=== PATIENT | male | born 1940 | race Caucasian/White ===

== ENCOUNTER 2020-12-04 08:30 | Inpatient (IN) | payer MEDICARE ==
[2020-12-04] MEDS ORDERED: SODIUM CHLORIDE 0.9% 1,000 ML IV STA ×2 (08:51→12:00)
--- NOTE | 2020-12-04 08:54 | ED ---
General Adult HPI - General Chief complaint: Fall Stated complaint: fall Time Seen by Provider: 12/04/20 08:45 Source: patient, RN notes reviewed, old records reviewed Mode of arrival: EMS Limitations: no limitations - History of Present Illness Initial comments: This is an 80-year-old male who states he was trying to get out of bed this morning he slipped and fell striking his head and face on the floor. Patient states she's been living at 45 hours. Patient states his refused to help him up. Patient states she's also noted a lot of gas in his abdomen and some little more distended than normal. Patient admits to being a heavy drinker trevor blackmon. Patient's complaint currently is slight facial pain under the right eye and a lot of gas in his abdomen. Patient denies any chest pain difficulty breathing shortness of breath per patient denies being lightheaded or dizzy. Patient denies headache. Patient denies any numbness or weakness. Patient denies neck pain. Patient denies any abdominal pain he does complain of distention. Patient denies any extremity pain. - Related Data Home Medications Medication Instructions Recorded Confirmed Allopurinol [Zyloprim] 100 mg PO DAILY 12/04/20 12/04/20 Aspirin EC [Ecotrin Low Dose] 162 mg PO ONCE PRN 12/04/20 12/04/20 Levothyroxine Sodium [Synthroid] 100 mcg PO DAILY 12/04/20 12/04/20 lisinopriL [Zestril] 10 mg PO DAILY 12/04/20 12/04/20 Allergies Allergy/AdvReac Type Severity Reaction Status Date / Time No Known Allergies Allergy Verified 12/04/20 10:58 Review of Systems ROS Statement: Those systems with pertinent positive or pertinent negative responses have been documented in the HPI. ROS Other: All systems not noted in ROS Statement are negative. Past Medical History Past Medical History: Unable to Obtain History of Any Multi-Drug Resistant Organisms: None Reported Past Surgical History: Unable to Obtain Past Psychological History: No Psychological Hx Reported Smoking Status: Current every day smoker Past Alcohol Use History: Abuse, Daily, Heavy Past Drug Use History: None Reported General Exam - General Exam Comments Initial Comments: GENERAL: Patient is well-developed and well-nourished. Patient is nontoxic and well- hydrated and is in mild distress. ENT: Neck is soft and supple. No significant lymphadenopathy is noted. Oropharynx is clear. Moist mucous membranes. Neck has full range of motion without eliciting any pain. EYES: The sclera were anicteric and conjunctiva were pink and moist. Extraocular movements were intact and pupils were equal round and reactive to light. Eyelids were unremarkable. PULMONARY: Unlabored respirations. Good breath sounds bilaterally. No audible rales rhonchi or wheezing was noted. CARDIOVASCULAR: There is a regular rate and rhythm without any murmurs gallops or rubs. ABDOMEN: Abdomen is distended with slight diffuse pain. There is no point tenderness. Patient is complaining this time that he has had a bowel movement. SKIN: Skin is clear with no lesions or rashes and otherwise unremarkable. NEUROLOGIC: Patient is alert and oriented x3. Cranial nerves II through XII are grossly intact. Motor and sensory are also intact. Normal speech, volume and content. Symmetrical smile. MUSCULOSKELETAL: Normal extremities with adequate strength and full range of motion. Patient has some tenderness under the right eye with others. He said subtle superficial abrasion LYMPHATICS: No significant lymphadenopathy is noted PSYCHIATRIC: Normal psychiatric evaluation. Limitations: no limitations Course Vital Signs 12/04/20 12/04/20 12/04/20 08:43 10:03 11:38 Temperature 98 F Pulse Rate 115 H 116 H 124 H Respiratory 24 18 Rate Blood Pressure 136/123 91/60 99/67 O2 Sat by Pulse 93 L 97 92 L Oximetry 12/04/20 12:01 Temperature Pulse Rate 117 H Respiratory 18 Rate Blood Pressure 88/60 O2 Sat by Pulse 94 L Oximetry Medical Decision Making - Medical Decision Making CT of the brain and C-spine are negative. CT of the facial bones are negative. Patient had a CT of the abdomen it was indicative of a aortic aneurysm with ru pture and hemorrhage around the aorta measuring 17 x 15 cm I spoke with Dr. Harris and he was going to take the patient for Orthopedic Tech I called in the Orthopedic Tech and or is going to be on standby. I had CAT scan burn a disc as well. - Lab Data Result diagrams: 12/04/20 09:37 12/04/20 09:37 Lab Results 12/04/20 12/04/20 12/04/20 Range/Units 09:37 09:37 09:37 WBC 25.4 H (3.8-10.6) k/uL RBC 3.84 L (4.30-5.90) m/uL Hgb 13.3 (13.0-17.5) gm/dL Hct 40.2 (39.0-53.0) % MCV 104.7 H (80.0-100.0) fL MCH 34.6 (25.0-35.0) pg MCHC 33.1 (31.0-37.0) g/dL RDW 12.4 (11.5-15.5) % Plt Count 171 (150-450) k/uL MPV 8.6 Neutrophils % 85 % Lymphocytes % 8 % Monocytes % 6 % Eosinophils % 0 % Basophils % 0 % Neutrophils # 21.5 H (1.3-7.7) k/uL Lymphocytes # 2.1 (1.0-4.8) k/uL Monocytes # 1.4 H (0-1.0) k/uL Eosinophils # 0.1 (0-0.7) k/uL Basophils # 0.1 (0-0.2) k/uL Macrocytosis Slight PT 10.7 (9.0-12.0) sec INR 1.0 (<1.2) APTT 21.2 L (22.0-30.0) sec Sodium 140 (137-145) mmol/L Potassium 3.8 (3.5-5.1) mmol/L Chloride 107 (98-107) mmol/L Carbon Dioxide 11 L (22-30) mmol/L Anion Gap 22 mmol/L BUN 16 (9-20) mg/dL Creatinine 1.52 H (0.66-1.25) mg/dL Est GFR (CKD-EPI)AfAm 50 (>60 ml/min/1.73 sqM) Est GFR (CKD-EPI)NonAf 43 (>60 ml/min/1.73 sqM) Glucose 196 H (74-99) mg/dL Plasma Lactic Acid Gabino (0.7-2.0) mmol/L Calcium 9.8 (8.4-10.2) mg/dL Magnesium 2.7 H (1.6-2.3) mg/dL Total Bilirubin 0.7 (0.2-1.3) mg/dL AST 40 (17-59) U/L ALT 26 (4-49) U/L Alkaline Phosphatase 68 (38-126) U/L Total Protein 6.3 (6.3-8.2) g/dL Albumin 3.7 (3.5-5.0) g/dL Amylase 76 (30-110) U/L Lipase 152 (23-300) U/L Serum Alcohol <10 mg/dL Blood Type Recheck Bld Type Recheck Status Spec Expiration Date 12/04/20 12/04/20 Range/Units 09:37 11:33 WBC (3.8-10.6) k/uL RBC (4.30-5.90) m/uL Hgb (13.0-17.5) gm/dL Hct (39.0-53.0) % MCV (80.0-100.0) fL MCH (25.0-35.0) pg MCHC (31.0-37.0) g/dL RDW (11.5-15.5) % Plt Count (150-450) k/uL MPV Neutrophils % % Lymphocytes % % Monocytes % % Eosinophils % % Basophils % % Neutrophils # (1.3-7.7) k/uL Lymphocytes # (1.0-4.8) k/uL Monocytes # (0-1.0) k/uL Eosinophils # (0-0.7) k/uL Basophils # (0-0.2) k/uL Macrocytosis PT (9.0-12.0) sec INR (<1.2) APTT (22.0-30.0) sec Sodium (137-145) mmol/L Potassium (3.5-5.1) mmol/L Chloride (98-107) mmol/L Carbon Dioxide (22-30) mmol/L Anion Gap mmol/L BUN (9-20) mg/dL Creatinine (0.66-1.25) mg/dL Est GFR (CKD-EPI)AfAm (>60 ml/min/1.73 sqM) Est GFR (CKD-EPI)NonAf (>60 ml/min/1.73 sqM) Glucose (74-99) mg/dL Plasma Lactic Acid Gabino 12.9 H* (0.7-2.0) mmol/L Calcium (8.4-10.2) mg/dL Magnesium (1.6-2.3) mg/dL Total Bilirubin (0.2-1.3) mg/dL AST (17-59) U/L ALT (4-49) U/L Alkaline Phosphatase (38-126) U/L Total Protein (6.3-8.2) g/dL Albumin (3.5-5.0) g/dL Amylase (30-110) U/L Lipase (23-300) U/L Serum Alcohol mg/dL Blood Type Recheck No Previous Record Bld Type Recheck Status CABO Indicated Spec Expiration Date 12/07/20202332 Disposition Clinical Impression: Ruptured abdominal aortic aneurysm Disposition: ADMITTED IP TO THIS HOSP Referrals: Zurdo Seymour DO [Primary Care Provider] - 1-2 days Time of Disposition: 12:11
[2020-12-04] MEDS ORDERED: SODIUM CHLORIDE 0.9% 1,000 ML IV ONE ×2 (09:26→17:30)
[2020-12-04 09:51] LABS: Basophils # (A) 0.1 k/uL (0-0.2); Basophils % (A) 0 %; Eosinophils # (A) 0.1 k/uL (0-0.7); Eosinophils % (A) 0 %; HCT 40.2 % (39.0-53.0); HGB 13.3 gm/dL (13.0-17.5); Lymphocytes # (A) 2.1 k/uL (1.0-4.8); Lymphocytes % (A) 8 %; MCH 34.6 pg (25.0-35.0); MCHC 33.1 g/dL (31.0-37.0); MCV 104.7 fL (80.0-100.0); Macrocytosis Slight; Mean Platelet Volume 8.6; Monocytes # (A) 1.4 k/uL (0-1.0); Monocytes % (A) 6 %; Neutrophils # (A) 21.5 k/uL (1.3-7.7); Neutrophils % (A) 85 %; Platelet Count 171 k/uL (150-450); RBC 3.84 m/uL (4.30-5.90); RDW 12.4 % (11.5-15.5); WBC 25.4 k/uL (3.8-10.6)
[2020-12-04 10:06] LABS: Prothrombin Time 10.7 sec (9.0-12.0)
[2020-12-04 10:10] LABS: Partial Thromboplastin Time 21.2 sec (22.0-30.0)
[2020-12-04 10:11] LABS: AST 40 U/L (17-59); African American GFR (CKD) 50 (>60 ml/min/1.73 sqM); Albumin 3.7 g/dL (3.5-5.0); Alcohol <10 mg/dL; Alkaline Phosphatase 68 U/L (38-126); Amylase 76 U/L (30-110); Anion Gap 22 mmol/L; Blood Urea Nitrogen 16 mg/dL (9-20); Calcium 9.8 mg/dL (8.4-10.2); Carbon Dioxide 11 mmol/L (22-30); Chloride 107 mmol/L (98-107); Glucose 196 mg/dL (74-99); Lipase 152 U/L (23-300); Magnesium 2.7 mg/dL (1.6-2.3); Non-African American GFR(CKD) 43 (>60 ml/min/1.73 sqM); Potassium 3.8 mmol/L (3.5-5.1); Sodium 140 mmol/L (137-145); Total Bilirubin 0.7 mg/dL (0.2-1.3); Total Protein 6.3 g/dL (6.3-8.2)
[2020-12-04 10:17] LABS: ALT 26 U/L (4-49)
--- NOTE | 2020-12-04 10:21 | CT ---
EXAMINATION TYPE: CT brain cspine wo con DATE OF EXAM: 12/04/2020 COMPARISON: None HISTORY: Fall from bed this am CT DLP: 1270.7 mGycm Automated exposure control for dose reduction was used. TECHNIQUE: CT scan of the head and cervical spine are performed without contrast. FINDINGS: There is no acute intracranial hemorrhage, mass effect, or midline shift identified. The ventricles, basal cisterns and sulci over the convexities are markedly enlarged consistent with marke d generalized atrophy.. Incidental note is scattered punctate calcifications in the left parietal co rtex which are nonspecific. The globes are intact and the visualized sinuses are clear. Cervical spine is visualized in its entirety from C1 through upper thoracic levels and demonstrates s atisfactory alignment without evidence of acute fracture or dislocation. There are marked degenerati ve changes in the mid lower lumbar spine with marked degenerative disc disease and facet arthropathy and to a lesser extent arthropathy of the uncovertebral joints. Prevertebral soft tissue appears with in normal limits. The C1-C2 articulation is unremarkable. IMPRESSION: 1. There is no acute fracture or dislocation evident in the cervical spine. 2. No acute intracranial hemorrhage, mass effect, or midline shift is seen.
--- NOTE | 2020-12-04 10:23 | CT ---
EXAMINATION TYPE: CT facial bones wo con DATE OF EXAM: 12/04/2020 COMPARISON: HISTORY: Fall from bed this am CT DLP: 1270.7 mGycm Automated exposure control for dose reduction was used. TECHNIQUE: CT scan of the sinuses is performed without contrast, axial images are obtained, coronal r eformatted images are also reviewed. FINDINGS: The paranasal sinuses including the frontal, ethmoid, sphenoid, and maxillary sinuses bila terally are well-aerated without abnormal opacification. The ostiomeatal complex is patent bilateral ly on the coronal images. The osseous structures are intact and there is no evidence of fracture. Visualized portion of mastoid air cells show no abnormal opacification. The globes are intact bilate rally. IMPRESSION: The sinuses are clear and the ostiomeatal complex is patent bilaterally. There is no randee dence of facial trauma.
--- NOTE | 2020-12-04 11:49 | CT ---
EXAMINATION TYPE: CT angio abdomen pelvis DATE OF EXAM: 12/04/2020 COMPARISON: None HISTORY: abd distention, decreased BP CT DLP: 2299.4 mGycm CONTRAST: CTA abdominal aorta with 3-D reconstruction is performed without Oral Contrast and without and with IV Contrast, patient injected with 100 mL of Isovue 370. Contrast CTA of the abdominal aorta was performed from the lung bases through the base of the pelvis . 3-D reconstruction imaging obtained at a separate workstation. CONTRAST CT ABDOMEN AND PELVIS ABDOMINAL AORTA: There is ruptured abdominal aortic aneurysm noted with periaortic hemorrhage seen. A neurysm measures approximately 11.3 cm AP dimension. There is ill-definition of the anterior wall wit h periaortic hemorrhage measuring approximately 16.8 cm in transverse dimension by 15 cm in AP dimens ion. On precontrast imaging there is a hyperattenuating crescent sign indicating an area of increased attenuation within the aortic aneurysm mural thrombus. LIVER/GB- No significant abnormality is seen. PANCREAS- No significant abnormality is seen. SPLEEN- No significant abnormality is seen. ADRENALS- No significant abnormality is seen. KIDNEYS/BLADDER- No significant abnormality is seen. BOWEL- No Significant abnormality . Incidental hiatal hernia. GENITAL ORGANS: No gross abnormality seen. LYMPH NODES- No greater than 1cm abdominal or pelvic lymph nodes areappreciated. OSSEOUS STRUCTURES- No significant abnormality is seen. OTHER- No significant abnormality is seen. IMPRESSION- 1. Ruptured abdominal aortic aneurysm. Periaortic hemorrhage noted as discussed above.
[2020-12-04 12:24] LABS: Basophils % (A) 0 %; Eosinophils % (A) 0 %; HCT 34.8 % (39.0-53.0); HGB 11.4 gm/dL (13.0-17.5); Lymphocytes % (A) 5 %; MCH 33.9 pg (25.0-35.0); MCHC 32.7 g/dL (31.0-37.0); MCV 103.6 fL (80.0-100.0); Macrocytosis Slight; Monocytes # (A) 1.3 k/uL (0-1.0); Monocytes % (A) 6 %; Neutrophils # (A) 17.2 k/uL (1.3-7.7); Neutrophils % (A) 87 %; Platelet Count 174 k/uL (150-450); RBC 3.35 m/uL (4.30-5.90); RDW 13.3 % (11.5-15.5); WBC 19.7 k/uL (3.8-10.6)
[2020-12-04] MEDS ORDERED: HEPARIN SODIUM,PORCINE 5,000 UNIT/ML 1 ML VIAL ONE (13:30)
[2020-12-04] MEDS ORDERED: fentaNYL (PF) 50 MCG/ML 2 ML AMP ONE (13:30)
[2020-12-04] MEDS ORDERED: SODIUM CHLORIDE 0.9% 100 ML BAG ONE (13:30)
[2020-12-04] MEDS ORDERED: SUCCINYLCHOLINE CHLORIDE 100 MG/5 ML SYR IV ONE (13:30)
[2020-12-04] MEDS ORDERED: PROPOFOL 10 MG/ML 20 ML VIAL IV ONE (13:30)
[2020-12-04] MEDS ORDERED: PHENYLEPHRINE-0.9% NACL SYG 1,000 MCG/10 ML SYRINGE ONE (13:30)
[2020-12-04] MEDS ORDERED: ceFAZolin 1,000 MG VIAL ONE (13:30)
--- NOTE | 2020-12-04 13:37 | P.PN ---
Progress Note - Text Progress Note Date: 12/04/20 This is an 80-year-old male who states he was trying to get out of bed this morning he slipped and fell striking his head and face on the floor. Patient states he's been lying on the floor for 4-5 hours. Patient states his refused to help him up. His abdomen became more distended and was complaining of gas pains and was brought to the hospital at that time. He arrived to the hospital this morning around 9 am and was complaining of facial pain and a lot of gas in his abdomen. Patient admits to being a heavy drinker daily. He underwent trauma workup with xrays which were negative but then patient became hypotensive and complaining of more distension and therefore a CTA of the abd omen was ordered which demonstrated a 11cm ruptured AAA and the vascular surgery was called at 11:47. Patient has been maintained at SBP of 100 or so for the last couple of hours and has received 3 liters of IVF. Patient was then seen at 12:20 by myself and he was stable with permissive hypotension. CTA was reviewed and the aorta is large with an acute angle at the renals with a short neck kee uring 7-10mm. All options were discussed with the patient including open repair vs. endovascular repair. We will attempt endovascular repair but if unable to seal will need to open which was discussed with family and patient along with all risks and complications including renal failure and . Will take to the sanitation laborer emergently once all team arrives. 2 units PRBC are on hold, anesthesia contacted as well as the operating room which is on standby for open repair. Critical care time 45 minutes.
[2020-12-04] MEDS ORDERED: LIDOCAINE 1% INJ 10MG/ML (20 ML MDV) SQ ONE (13:50)
[2020-12-04] MEDS ORDERED: IV FLUID CONTINUATION 1,000 ML IV ONE ×3 (14:21→17:20)
[2020-12-04] MEDS: SODIUM BICARB 8.4% 50 ML SYR (1 MEQ/ML) ONE ×2 (17:45→18:50)
[2020-12-04] MEDS ORDERED: SODIUM BICARB 8.4% 50 ML SYR (1 MEQ/ML) IV STA ×3 (17:52→18:29)
[2020-12-04] MEDS ORDERED: IOPAMIDOL-250 100ML BTL INTRAARTER ONE ×2 (17:52)
[2020-12-04] MEDS ORDERED: SODIUM CHLORIDE 0.9% 50 ML with VASOPRESSIN 20 UNIT IVPB SCH ×2 (18:00)
[2020-12-04] MEDS ORDERED: NOREPINEPHRINE 32 MG in SODIUM CHLORIDE 0.9% 218 ML IV SCH (18:00)
[2020-12-04] MEDS ORDERED: propofoL 100 ML IV ONE (18:04)
[2020-12-04 18:25] LABS: ABG Base Excess -24.2 mmol/L; ABG Oxygen Saturation 98.2 % (94-97); ABG PCO2 50 mmHg (35-45); ABG PO2 201 mmHg (83-108); ABG TCO2 11 mmol/L (19-24); Allen Test Performed? Yes
[2020-12-04 18:26] LABS: Glucose,Whole Blood 187 mg/dL (75-99)
[2020-12-04] MEDS ORDERED: SODIUM BICARB 8.4% 50 ML SYR (1 MEQ/ML) ONE ×2 (18:26→18:27)
[2020-12-04 18:28] LABS: ABG HCO3 9 mmol/L (21-25); ABG PH 6.88 (7.35-7.45)
[2020-12-04] MEDS ORDERED: DEXTROSE 5% IN WATER 1,000 ML with SODIUM BICARB (1 MEQ/ML) 150 ML IV SCH (18:30)
--- NOTE | 2020-12-04 18:32 | XR ---
EXAMINATION TYPE: XR chest 1V portable DATE OF EXAM: 12/04/2020 COMPARISON: NONE HISTORY: Endotracheal tube placement TECHNIQUE: Single frontal view of the chest is obtained. FINDINGS: Endotracheal tube present with tip lying approximately 2.5 cm above the frannie. Right-side d central venous catheter present with tip at the cavoatrial junction. Cardiomediastinal silhouette a ppears unremarkable. Low lung volumes with bibasilar atelectasis. No definite pleural effusion or pne umothorax. Visualized osseous structures appear intact. IMPRESSION: 1. Satisfactory placement of endotracheal tube. 2. Lung volumes with bibasilar atelectasis. 3. Right-sided central venous catheter with tip cavoatrial junction.
[2020-12-04] MEDS ORDERED: PHENYLEPHRINE 40 MG in SODIUM CHLORIDE 0.9% 250 ML IV SCH (18:45)
[2020-12-04 18:47] VITALS: RESP 35; TEMP 93
[2020-12-04 18:53] LABS: HCT 23.4 % (39.0-53.0); Hypochromasia Marked; MCH 33.9 pg (25.0-35.0); MCHC 32.2 g/dL (31.0-37.0); MCV 105.1 fL (80.0-100.0); Macrocytosis Moderate; Mean Platelet Volume 9.3; RBC 2.22 m/uL (4.30-5.90); WBC 10.9 k/uL (3.8-10.6)
[2020-12-04 18:54] LABS: HGB 7.5 gm/dL (13.0-17.5)
[2020-12-04 19:04] VITALS: BP 88/46; PULSE 110
--- NOTE | 2020-12-04 19:08 | P.EN ---
CODE BLUE Indication: PEA arrest Arrived on Scene to find: CODE BLUE being run by anesthesia. Patient did have return of pulses of significant hypotension and systemic Inside Sales Trainer. He was stabilized and brought to the ICU. On arrival to the ICU Brinda Tabor noted to be hypotensive with a blood pressure of 46/23. Dr. Harris was at bedside side and have updated the family. Initial Rhythm: PEA arrest Code Course: Patient arrived to ICU. Hypotensive and decrease responsiveness. Levophed was increased. 2 Amps of bicarb was given. EKG was obtained which showed possible sinus tachycardia versus atrial fibrillation. Chest x-ray was obtained. vasopressin was ordered. ABG in 25 minutes. Increased rate to 20. Discussed with Dr. Fernandez rate increased to 30. Additional 1 unit pRBC ordered, complete 1000ml bolus Stat CBC, CMP, PT/inr, PTT, lactic acid, troponin Total Down Time: 5 minutes Vital signs reviewed General: ill appearing, maximal distress, appears at stated age Cardiovascular: [S1S2 tachy without murmur , no murmur, cap refill > 2 sec onds Lungs: CTA bilateral, no rhonchi, no rales , no accessory muscle use Abdominal: soft, nontender to palpation, no guarding, no appreciable organomegaly Ext: no gross muscle atrophy, no edema, no contractures Neuro: moving all 4 extremities, Left pupil slightly larger than right pupil Psych: sedated on vent Assessment: PEA arrest Hypovoleic shock Lactic acidosis Ruptured AAA Disposition: in ICU Notified: Dr. Harris at bedside, he has notified family. Dr. Russell over the phone [facility] notified by nursing via perfect serve ABG was reviewed which revealed a pH of 6.8, 49, 201, and a bicarb of 9.2. Hemoglobin was 6.9. He was given an additional 4 A of sodium bicarb. His ventilator respiratory rate was changed to 35 as he had been breathing with the vent at 30. An additional 2 units of packed red blood cells were ordered. He remained hypotensive. Ethan-Synephrine was ordered. Dr. Fernandez was contacted. Despite all this patient remained hypotensive with a blood pressure of 59/39. Additional 1 L of normal saline was ordered. Repeat ABG. Patient remains in critical condition. I anticipate that he will not survive this hospital stay. Nursing will work on getting family to bedside as soon as able. A Total of 119 minutes of critical care time was spent on the complex care of this patient.
[2020-12-04 19:12] LABS: ABG Base Excess -20.9 mmol/L; ABG HCO3 12 mmol/L (21-25); ABG PCO2 56 mmHg (35-45); ABG PO2 247 mmHg (83-108); ABG TCO2 13 mmol/L (19-24); Allen Test Performed? Yes
[2020-12-04 19:16] LABS: ABG PH 6.92 (7.35-7.45)
[2020-12-04 19:20] LABS: Platelet Count 77 k/uL (150-450)
[2020-12-04 19:22] LABS: Albumin 1.3 g/dL (3.5-5.0); Calcium 6.9 mg/dL (8.4-10.2); Magnesium 2.3 mg/dL (1.6-2.3); Phosphorus 7.6 mg/dL (2.5-4.5); Potassium 5.2 mmol/L (3.5-5.1); Total Bilirubin 0.5 mg/dL (0.2-1.3); Total Protein 2.9 g/dL (6.3-8.2)
[2020-12-04] MEDS ORDERED: MORPHINE SULFATE 4 MG/ML SYRINGE IV PRN (19:26)
--- NOTE | 2020-12-04 19:51 | P.OP ---
Description of Procedure: Date: 12/04/2020 Preoperative diagnosis: Ruptured Infrarenal 11 cm AAA with hypo-hypovolemic shock Postoperative diagnosis: Same, CPA status post CPR Procedure: 1. Percutaneous Endovascular aortic repair with Dulzura device. 2. Ultrasound-guided bilateral common femoral artery access 3. Selective right renal artery angiogram 4. Intravascular ultrasound of the aorta, and bilateral iliac arteries 5. Cardiopulmonary resuscitation Surgeon: Kimberly HDZ Anesthesia: local Estimated blood loss: 40 mL Complications: Cardiopulmonary arrest with ROSC Condition: Critical Indications: This is an 80-year-old male recently diagnosed with ruptured AAA and hypotension presents to the school laboratory technician for emergent endovascular repair possible open aortic repair. Operative narrative: After written and informed consent was obtained from the patient all risks benefits and complications were described the patient was brought to the Setter Helper and laid in a supine position. The area of the groins were prepped and draped in usual sterile fashion after appropriate anesthetic was performed per the anesthesiologist. A timeout was performed in normal fashion and antibiotics were administered prior to incisions. Utilizing ultrasound bilateral common femoral arteries were visualized demonstrating patency with minimal calcification. Under ultrasound guidance utilizing a multipurpose needle bilateral common femoral arteries were accessed and guidewire was placed followed by deployment of 2 Perclose closure devices for each femoral artery. Utilizing Seldinger technique and 8-Lao sheath was then placed. 035 Glidewire was then placed up the right femoral sheath and exchanged for a Lunderquist wire through an angled glide catheter. The left femoral artery was then utilized and guidewire was placed followed by pigtail catheter and aortogram was obtained demonstrating no active extravasation. The patient was maintained with systolic blood pressure between 80's and 90's. An IVUS was then placed up the right femoral sheath and measurements of the aorta, iliac arteries were obtained demonstrating need for 34 mm graft. Utilizing the Lunderquist wire a 34 mm main body device was then loaded over the guidewire after the 8-Lao sheath was removed. Patient was administered heparin at this time. Delivery system was then placed 1 cm proximal to the intended landing site and the aortic body was oriented for appropriate access for the contralateral limb. Delivery system was then retracted out of the sheath and the aortic body radiopaque markers were verified to be in the correct position. First segment of the graft was then deployed in normal fashion by releasing and pulling the knob in normal fashion. Balloon injection port was then inflated utilizing a 4-1 saline contrast mixture in order to open the mid crown. Balloon was then deflated. Precise positioning was then performed with utilizing the radiopaque markers and parallax was removed and our to land at the renal arteries. Pigtail catheter was then retracted away from the proximal stent and the proximal stent was released in normal fashion. Polymer was then utilized and filled through the polymer port which was visualized under fluoroscopy. The stiff Lunderquist wire was then retracted within the ipsilateral limb. Attention was then placed to accessing the contralateral limb. Utilizing the up and over lumen an 014 wire was placed and snared in usual fashion and angled glide catheter the contralateral limb followed by a trell wire and contralateral limb was accessed. There was severe tortuosity and a stiff wire was placed to allow placement of Pigtail catheter. Pigtail catheter was then spun to verify intragraft cannulation. A stiff wire was then placed within the pigtail catheter and retrograde angiogram was obtained demonstrating the internal iliac artery takeoff. Measurements were obtained and a [id number] Ovation limb followed by a [id number] Ovation extension limb was chosen to be deployed and deployed in normal fashion after ballooning the main body rings. Once completed the aortic main body was completely deployed in normal fashion. Utilizing the balloon balloon angioplasty was performed at the ring to further mold the polymer to the aortic neck. Once completed the aortic body deployment sheath was removed in normal fashion. Pigtail catheter was then placed over the Lunderquist wire and retrograde angiogram was obtained with measurements to the internal iliac artery on the ipsilateral limb. A [id number] Ovation limb followed by a [id number] Ovation limb was chosen and deployed in normal fashion. Once completed two 12 x 40mm balloons were placed up each iliac limb and balloon angioplasty was performed through its entirety. Once completed balloons were removed and pigtail catheter was placed above the graft and final angiogram was obtained demonstrating exclusion of the aneurysm with no evidence of endoleak's. There was minimal filling of the kidneys noted and therefore catheter was placed into the right renal artery and angiogram was obtained demonstrating no dissection or thrombus. Patient was less responsive after sealing aneurysm and continued hypotension noted and was treated per anesthesia. All guidewires and catheters were then removed and the Perclose closure devices were closed in normal fashion. At this time we were still having issues with resposiveness and drapes were removed and patient became pulseless. CPR was initiated and code blue was called. Please see event documentation. Once ROSC was obtained patient was sent to ICU for further critical care.
[2020-12-04] MEDS ORDERED: CHLORHEXIDINE GLUCONATE 15 ML CUP MUCOUS MEM SCH (21:00)
--- NOTE | 2020-12-04 22:39 | P.HPIM ---
History of Present Illness H&P Date: 12/04/20 Chief Complaint: Fall Mr. Ruffin is an 80-year-old male with a past medical history of significant smoking, hypothyroidism, gout, hypertension admitted to the hospital after he slipped and fell while trying to get out of the bed this morning. He fell with his head and face on the floor. Patient's admits that he is a heavy drinker and has been drinking heavily. The patient was also having distention of his abdomen, more than usual. So eventually the patient got CAT scan of the head and face that was showing no acute intracranial hemorrhage and he had a CAT scan of the abdomen which was showing ruptured abdominal aortic aneurysm with approximately 11.3 cm AP dimension. So vascular surgery was notified immediately and the patient was taken to the OR emergently by Dr. Harris. During endovascular aortic repair patient had cardiopulmonary arrest on the operating table. Eventually patient was resuscitated and sent to the ICU. Review of Systems ROS unobtainable: due to mental status Past Medical History Past Medical History: Unable to Obtain History of Any Multi-Drug Resistant Organisms: None Reported Past Surgical History: Unable to Obtain Past Psychological History: No Psychological Hx Reported Smoking Status: Current every day smoker Past Alcohol Use History: Abuse, Daily, Heavy Past Drug Use History: None Reported Medications and Allergies Home Medications Medication Instructions Recorded Confirmed Type Allopurinol [Zyloprim] 100 mg PO DAILY 12/04/20 12/04/20 History Aspirin EC [Ecotrin Low Dose] 162 mg PO ONCE PRN 12/04/20 12/04/20 History Levothyroxine Sodium [Synthroid] 100 mcg PO DAILY 12/04/20 12/04/20 History lisinopriL [Zestril] 10 mg PO DAILY 12/04/20 12/04/20 History Allergies Allergy/AdvReac Type Severity Reaction Status Date / Time No Known Allergies Allergy Verified 12/04/20 10:58 Physical Exam Vitals: Vital Signs Temp Pulse Resp BP Pulse Ox 12/04/20 13:07 77/47 12/04/20 13:02 117 H 98/45 12/04/20 12:46 113 H 17 100/64 12/04/20 12:43 91/65 12/04/20 12:14 115 H 19 111/74 96 12/04/20 12:06 111 H 17 113/73 12/04/20 12:01 117 H 18 88/60 94 L 12/04/20 11:38 124 H 18 99/67 92 L 12/04/20 10:03 116 H 91/60 97 12/04/20 08:43 98 F 115 H 24 136/123 93 L Intake and Output 12/04/20 12/04/20 12/04/20 06:59 14:59 22:59 Other: Weight 122.47 kg PHYSICAL EXAMINATION: GENERAL:very pale HEENT - + pallor CARDIOVASCULAR: S1 and S2 present PULMONARY: Pt is intubated and breath sounds present bilaterally ABDOMEN: Distended MUSCULOSKELETAL: No joint swelling or deformity. EXTREMITIES: No edema NEUROLOGICAL: sedated and intubated Results CBC & Chem 7: 12/04/20 18:04 12/04/20 18:04 Labs: Abnormal Lab Results - Last 24 Hours (Table) 12/04/20 12/04/20 12/04/20 Range/Units 09:37 09:37 09:37 WBC 25.4 H (3.8-10.6) k/uL RBC 3.84 L (4.30-5.90) m/uL Hgb (13.0-17.5) gm/dL Hct (39.0-53.0) % MCV 104.7 H (80.0-100.0) fL Neutrophils # 21.5 H (1.3-7.7) k/uL Monocytes # 1.4 H (0-1.0) k/uL APTT 21.2 L (22.0-30.0) sec Carbon Dioxide 11 L (22-30) mmol/L Creatinine 1.52 H (0.66-1.25) mg/dL Glucose 196 H (74-99) mg/dL Plasma Lactic Acid Gabino (0.7-2.0) mmol/L Magnesium 2.7 H (1.6-2.3) mg/dL 12/04/20 12/04/20 12/04/20 Range/Units 09:37 11:44 13:17 WBC 19.7 H (3.8-10.6) k/uL RBC 3.35 L (4.30-5.90) m/uL Hgb 11.4 L (13.0-17.5) gm/dL Hct 34.8 L (39.0-53.0) % MCV 103.6 H (80.0-100.0) fL Neutrophils # 17.2 H (1.3-7.7) k/uL Monocytes # 1.3 H (0-1.0) k/uL APTT (22.0-30.0) sec Carbon Dioxide (22-30) mmol/L Creatinine (0.66-1.25) mg/dL Glucose (74-99) mg/dL Plasma Lactic Acid Gabino 12.9 H* 10.2 H* (0.7-2.0) mmol/L Magnesium (1.6-2.3) mg/dL Assessment and Plan Assessment: ASSESSMENT Abdominal aortic aneurysm rupture with hemorrhage Acute blood loss anemia Leukocytosis Elevated plasma lactic acid Hypertension Gout History of alcohol abuse Nicotine dependence Obesity with BMI of 36 PLAN: Mr. Ruffin is an 80-year-old male with a past medical history of significant smoking, hypothyroidism, gout, hypertension admitted to the hospital after he slipped and fell while trying to get out of the bed this morning. He fell with his head and face on the floor. Patient's admits that he is a heavy drinker and has been drinking heavily. The patient was also having distention of his abdomen, more than usual. So eventually the patient got CAT scan of the head and face that was showing no acute intracranial hemorrhage and he had a CAT scan of the abdomen which was showing ruptured abdominal aortic aneurysm with approximately 11.3 cm AP dimension. So vascular surgery was notified immediately and the patient was taken to the OR emergently by Dr. Harris. During endovascular aortic repair patient had cardiopulmonary arrest on the operating table. Eventually patient was resuscitated and sent to the ICU. In the ICU around 6 PM patient had coded again, patient's family informed. Patient family was at bedside and decided to withdraw care as his prognosis was very poor. I was present at the bedside, with the family and immediately after extubation the patient .
--- NOTE | 2020-12-05 09:02 | IR ---
EXAMINATION TYPE: IR stent intravas non coronary DATE OF EXAM: 12/04/2020 COMPARISON: NONE HISTORY: Fluoroscopy time. Fluoroscopy was provided to the referring clinician.
== END 2020-12-04 20:06 | disposition expired | DRG 269 ==
LOC: EC 08:30 → 2SICU 13:46
PROVIDERS: ADMIT Hospitalist; ATTEND Hospitalist
PROC: B4161ZZ Fluoroscopy of Right Renal Artery using Low Osmolar Contrast (ICD-10-PCS; 2020-12-04)
PROC: B440ZZ3 Ultrasonography of Abdominal Aorta, Intravascular (ICD-10-PCS; 2020-12-04)
PROC: B44BZZ3 Ultrasonography of Other Intra-Abdominal Arteries, Intravascular (ICD-10-PCS; 2020-12-04)
PROC: 5A12012 Performance of Cardiac Output, Single, Manual (ICD-10-PCS; 2020-12-04)
PROC: 30233N1 Transfusion of Nonautologous Red Blood Cells into Peripheral Vein, Percutaneous Approach (ICD-10-PCS; 2020-12-04)
PROC: 5A1935Z Respiratory Ventilation, Less than 24 Consecutive Hours (ICD-10-PCS; 2020-12-04)
PROC: 0BH17EZ Insertion of Endotracheal Airway into Trachea, Via Natural or Artificial Opening (ICD-10-PCS; 2020-12-04)
PROC: 3E043XZ Introduction of Vasopressor into Central Vein, Percutaneous Approach (ICD-10-PCS; 2020-12-04)
PROC: 04V03DZ Restriction of Abdominal Aorta with Intraluminal Device, Percutaneous Approach (ICD-10-PCS; principal; 2020-12-04 13:06)
DX: I71.3 Abdominal aortic aneurysm, ruptured (principal); D62 Acute posthemorrhagic anemia; E87.2 Acidosis; I46.8 Cardiac arrest due to other underlying condition; R57.1 Hypovolemic shock; E03.9 Hypothyroidism, unspecified; M10.9 Gout, unspecified; I10 Essential (primary) hypertension; F17.200 Nicotine dependence, unspecified, uncomplicated; D72.829 Elevated white blood cell count, unspecified; F10.10 Alcohol abuse, uncomplicated; E66.9 Obesity, unspecified; H57.02 Anisocoria; W06.XXXA Fall from bed, initial encounter; Z79.82 Long term (current) use of aspirin; Z68.36 Body mass index [BMI] 36.0-36.9, adult; Z79.899 Other long term (current) drug therapy; Z79.890 Hormone replacement therapy; Y92.003 Bedroom of unspecified non-institutional (private) residence as the place of occurrence of the external cause
CPT/HCPCS: 34705; 36430; 36600; 70450; 70486; 71045; 72125; 74174; 80053; 80320; 82150; 82550; 82805; 83605; 83690; 83735; 84100; 85025; 85027; 85610; 85730; 86850; 86900; 86901; 86920; 87070; 87205; 94002; 96360; 96361; 99285